=== PATIENT | female | born 2000 | race Caucasian/White ===

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

== ENCOUNTER 2021-09-05 19:49 | Emergency (ER) | payer OTHER ==
[2021-09-05 20:05] VITALS: BP 117/83; PULSE 105; TEMP 98.3; BMI 21.7
[2021-09-05] MEDS ORDERED: ERYTHROMYCIN 0.5% OPHTHALMIC OINTMENT 3.5 GM TUBE ONE (20:36)
[2021-09-05] MEDS ORDERED: ERYTHROMYCIN 0.5% OPHTHALMIC OINTMENT 3.5 GM TUBE OD ONE (20:38)
== END 2021-09-05 21:33 | disposition home or self-care (01) ==
LOC: JERFT 19:49
DX: H10.33 Unspecified acute conjunctivitis, bilateral (principal)
CPT/HCPCS: 99283-25